=== PATIENT | male | born 1965 | race Caucasian/White ===

== ENCOUNTER 2024-04-05 04:42 | Emergency (ER) | payer MEDICAID ==
[~2024-04-05] VITALS: Ht 170.2 cm; Wt 82.1 kg
[2024-04-05 04:51] VITALS: O2SAT 100
[2024-04-05] MEDS ORDERED: HALOPERIDOL LACTATE 5MG/ML VIAL IM STA (05:12)
[2024-04-05] MEDS: LORAZEPAM 2MG/ML INJ IM ONE (05:15)
[2024-04-05] MEDS ORDERED: CEPH500T MT (05:40)
[2024-04-05 06:19] VITALS: BP 135/83; PULSE 87; TEMP 98
== END 2024-04-05 06:22 | disposition home or self-care (01) ==
LOC: ER 05:09
DX: R33.9 Retention of urine, unspecified (principal)
CPT/HCPCS: 51702; 99284